=== PATIENT | male | born 1995 | race Caucasian/White ===

== ENCOUNTER 2019-05-07 12:43 | Emergency (ER) | payer OTHER, BC ==
[~2019-05-07] VITALS: Ht 177.8 cm; Wt 68.4 kg
[2019-05-07 12:50] VITALS: BP 122/76
== END 2019-05-07 14:49 | disposition home or self-care (01) ==
LOC: ER 12:45
DX: M25.562 Pain in left knee (principal); V89.2XXA Person injured in unspecified motor-vehicle accident, traffic, initial encounter; Y93.89 Activity, other specified; Y92.410 Unspecified street and highway as the place of occurrence of the external cause; Y99.8 Other external cause status
CPT/HCPCS: 29505; 73564; 99283